=== PATIENT | female | born 1990 | race Two or more races ===

== ENCOUNTER 2018-10-21 16:08 | Emergency (ER) | payer OTHER ==
[~2018-10-21] VITALS: Ht 162.6 cm; Wt 49.9 kg
== END 2018-10-21 17:20 | disposition home or self-care (01) ==
LOC: ER 16:08
DX: N63.23 Unspecified lump in the left breast, lower outer quadrant (principal)

== ENCOUNTER → 2019-07-31 16:25 | Outpatient (CLI) | payer OTHER | END | disposition home or self-care (01) | LOC: LAB 16:25 | DX: J11.1 Influenza due to unidentified influenza virus with other respiratory manifestations (principal); J20.0 Acute bronchitis due to Mycoplasma pneumoniae ==

== ENCOUNTER 2019-11-08 18:09 | Emergency (ER) | payer OTHER ==
[~2019-11-08] VITALS: Ht 162.6 cm; Wt 50.8 kg
[2019-11-08] MEDS ORDERED: FUSION PLUS CA1 EACH PO (18:41)
== END 2019-11-08 21:57 | disposition home or self-care (01) ==
LOC: ER 18:09
DX: J11.1 Influenza due to unidentified influenza virus with other respiratory manifestations (principal); B96.0 Mycoplasma pneumoniae [M. pneumoniae] as the cause of diseases classified elsewhere

== ENCOUNTER 2020-04-09 12:49 | Outpatient (CLI) | payer OTHER ==
[~2020-04-09 12:49] MED LIST: FUSION PLUS CA1 EACH PO
== END 2020-04-09 13:03 | disposition home or self-care (01) ==
LOC: RAD 12:49
DX: M99.01 Segmental and somatic dysfunction of cervical region (principal); M62.830 Muscle spasm of back; M54.2 Cervicalgia; M99.02 Segmental and somatic dysfunction of thoracic region; M99.03 Segmental and somatic dysfunction of lumbar region; M54.5 Low back pain; M51.37 Other intervertebral disc degeneration, lumbosacral region; M99.04 Segmental and somatic dysfunction of sacral region

== ENCOUNTER 2020-06-22 12:06 | Emergency (ER) | payer OTHER ==
[~2020-06-22] VITALS: Ht 162.6 cm; Wt 49.9 kg
== END 2020-06-22 17:27 | disposition home or self-care (01) ==
LOC: ER 12:06
DX: N39.0 Urinary tract infection, site not specified (principal); B96.29 Other Escherichia coli [E. coli] as the cause of diseases classified elsewhere; R31.29 Other microscopic hematuria

== ENCOUNTER 2021-05-12 13:55 | Emergency (ER) | payer OTHER ==
[~2021-05-12] VITALS: Ht 162.6 cm; Wt 50.8 kg
[2021-05-12] MEDS ORDERED: BENZONATATE200 M1 PO (18:54)
== END 2021-05-12 19:02 | disposition home or self-care (01) ==
LOC: ER 13:55
DX: B34.9 Viral infection, unspecified (principal); Z03.818 Encounter for observation for suspected exposure to other biological agents ruled out; R05 Cough; R09.81 Nasal congestion; R07.89 Other chest pain; R63.0 Anorexia; R51.9 Headache, unspecified

== ENCOUNTER 2022-02-27 06:14 | Emergency (ER) | payer OTHER ==
[~2022-02-27] VITALS: Ht 162.6 cm; Wt 48.5 kg
[~2022-02-27 06:14] MED LIST changes: +BENZONATATE200 M1 PO
[2022-02-27] MEDS ORDERED: IPRAT-ALBUT 0.5-3 ML IH (10:01)
[2022-02-27] MEDS ORDERED: BUDESONIDE0.5 MG/2 M IH (10:01)
[2022-02-27] MEDS ORDERED: MUCINEX DM ER1 EAC1 PO (10:01)
[2022-02-27] MEDS ORDERED: ZITHROMAX500 MG PO (10:01)
== END 2022-02-27 10:09 ==
LOC: ER 06:14
DX: A49.3 Mycoplasma infection, unspecified site (principal); J06.9 Acute upper respiratory infection, unspecified; Z20.822 Contact with and (suspected) exposure to COVID-19

== ENCOUNTER 2023-08-28 17:22 | Emergency (ER) | payer OTHER ==
[~2023-08-28] VITALS: Ht 162.6 cm; Wt 54.4 kg
[~2023-08-28 17:22] MED LIST changes: +BUDESONIDE0.5 MG/2 M IH; +IPRAT-ALBUT 0.5-3 ML IH; +MUCINEX DM ER1 EAC1 PO; +ZITHROMAX500 MG PO
[2023-08-28 21:04] LABS: HEMATOCRIT 31.7 % (36.0-45.00); HEMOGLOBIN 10.5 g/dL (12.0-15.00); MEAN CELL VOLUME 80.6 fL (80.00-100.00); MEAN CORPUSCULAR HEMOGLOBIN 26.7 pg (27.00-32.0); MEAN CORPUSCULAR HGB CONC 33.1 g/dl (32.0-36.0); PLATELET COUNT 253 K/uL (150-450); RED BLOOD COUNT 3.94 M/uL (4.00-6.00); RED CELL DISTRIBUTION WIDTH 13.1 % (11.5-14.5)
[2023-08-28 21:41] LABS: URINE APPEARANCE Cloudy; URINE BILIRRUBIN Negative (NEGATIVE); URINE BLOOD Negative; URINE COLOR Yellow; URINE GLUCOSE Negative (NEGATIVE); URINE LEUKOCYTE Large; URINE NITRATE Positive; URINE PROTEIN Trace (NEGATIVE)
[2023-08-28 21:45] LABS: URINE EPITHELIAL CELLS 104.5 uL (0.0-38.8); URINE WBC 374.9 uL (0.0-23.2)
[2023-08-28 22:05] LABS: URINE BACTERIA > 9821.5 uL (0.0-1933); URINE RBC 1.1 uL (0.0-20.8)
[2023-08-28 22:10] LABS: URINE YEAST NEGATIVE /hpf
== END 2023-08-28 22:50 | disposition home or self-care (01) ==
LOC: ER 17:22
PROVIDERS: General Practice
DX: N39.0 Urinary tract infection, site not specified (principal); M79.641 Pain in right hand

== ENCOUNTER 2024-07-20 23:45 | Emergency (ER) | payer OTHER ==
[~2024-07-20] VITALS: Ht 162.6 cm; Wt 65.8 kg
[2024-07-21] MEDS ORDERED: CEFTRIAXONE SODIUM 1,000 MG VIAL IM STA (01:42)
== END 2024-07-21 01:51 | disposition home or self-care (01) ==
LOC: ER 23:47
DX: J03.90 Acute tonsillitis, unspecified (principal)

== ENCOUNTER 2024-12-10 23:43 | Emergency (ER) | payer OTHER ==
[~2024-12-10] VITALS: Ht 162.6 cm; Wt 57.2 kg
[2024-12-11] MEDS ORDERED: ORPHENADRINE CITRATE 30 MG/ML AMPUL IM STA (02:01)
[2024-12-11] MEDS ORDERED: KETOROLAC TROMETHAMINE 60 MG VIAL IM STA (02:01)
[2024-12-11 02:55] LABS: URINE APPEARANCE Cloudy; URINE BILIRRUBIN Negative (NEGATIVE); URINE BLOOD Trace; URINE COLOR Yellow; URINE GLUCOSE Negative (NEGATIVE); URINE LEUKOCYTE Large; URINE NITRATE Positive; URINE PROTEIN Trace (NEGATIVE); URINE UROBILINOGEN 0.2 E.U./dl
[2024-12-11 02:56] LABS: HEMATOCRIT 30.6 % (36.0-45.00); HEMOGLOBIN 10.1 g/dL (12.0-15.00); MEAN CELL VOLUME 81.1 fL (80.00-100.00); MEAN CORPUSCULAR HEMOGLOBIN 26.8 pg (27.00-32.0); PLATELET COUNT 200 K/uL (150-450); RED BLOOD COUNT 3.78 M/uL (4.00-6.00); RED CELL DISTRIBUTION WIDTH 12.8 % (11.5-14.5)
[2024-12-11 02:58] LABS: URINE EPITHELIAL CELLS 101.9 uL (0.0-38.8); URINE RBC 141.2 uL (0.0-20.8); URINE WBC 508.8 uL (0.0-23.2)
[2024-12-11 03:41] LABS: URINE BACTERIA > 9821.5 uL (0.0-1933); URINE CAST 0.58 uL (0.0-1.40); URINE KETONE 40 (NEGATIVE); URINE YEAST FEW /hpf
[2024-12-11] MEDS ORDERED: CEFTRIAXONE SODIUM 1,000 MG VIAL IM STA (04:59)
[2024-12-11] MEDS ORDERED: CEPHALEXIN500 MG PO (05:16)
== END 2024-12-11 05:18 ==
LOC: ER 23:45
PROVIDERS: General Practice
DX: R53.81 Other malaise (principal); N39.0 Urinary tract infection, site not specified; R50.9 Fever, unspecified

== ENCOUNTER → 2025-03-15 | Emergency (ER) | payer OTHER ==
[~2025-03-15] VITALS: Ht 162.6 cm; Wt 56.7 kg
[~2025-03-15] MED LIST changes: +ACETAMINOPHEN500 M1 PO; +ALBUTEROL2.5 MG/3 M IH; +CEPHALEXIN500 MG PO; +GILTUSS COUGH-118 M1 PO; +IPRATROPIUM/ALBUTEROL SULFATE 3 ML AMPUL.NEB IH ONE; +IPRATROPIUM/ALBUTEROL SULFATE 3 ML AMPUL.NEB IH SCH; +PROAIR RESPICL90 MCG IH; +SODIUM CHLORIDE FOR INHALATION 1 VIAL.NEB IH ONE; +ZITHROMAX TRI-500 MG PO
[2025-03-15 15:14] VITALS: BP 118/74; O2SAT 98
[2025-03-15 18:07] LABS: BASO % 0.6 % (0.1-1.2); EOS # 0.04 (0.04-0.54); EOS % 0.4 % (0.7-7.0); HEMATOCRIT 33.8 % (34.1-44.9); HEMOGLOBIN 10.9 g/dL (11.2-15.7); LYMPH # 0.95 (1.18-3.74); LYMPH % 10.6 % (19.3-53.1); MEAN CORPUSCULAR HEMOGLOBIN 26.1 pg (25.6-32.2); MONO # 0.56 (0.24-0.82); MONO % 6.2 % (4.7-12.5); NEUT # 7.38 (1.56-6.13); NEUT % 82.1 % (34.0-71.1); PLATELET COUNT 263 K/uL (163-369); RED BLOOD COUNT 4.18 M/uL (3.93-5.22)
[2025-03-15 19:54] LABS: COVID-19 AG NEGATIVE (NEGATIVE)
[2025-03-15 19:55] LABS: INFLUENZA A AG NEGATIVE (NEGATIVE); INFLUENZA B AG NEGATIVE (NEGATIVE)
== END | disposition home or self-care (01) ==
LOC: ER 14:57
PROVIDERS: Preventive Medicine Public Health & General Preventive Medicine
DX: J06.9 Acute upper respiratory infection, unspecified (principal); J45.909 Unspecified asthma, uncomplicated; Z20.822 Contact with and (suspected) exposure to COVID-19

== ENCOUNTER → 2025-03-17 | Emergency (ER) | payer OTHER ==
[~2025-03-17] VITALS: Ht 162.6 cm; Wt 56.7 kg
[~2025-03-17] MED LIST changes: +BENZONATATE 100 MG CAPSULE PO STA; -IPRATROPIUM/ALBUTEROL SULFATE 3 ML AMPUL.NEB IH ONE; -IPRATROPIUM/ALBUTEROL SULFATE 3 ML AMPUL.NEB IH SCH; -SODIUM CHLORIDE FOR INHALATION 1 VIAL.NEB IH ONE; +SODIUM CHLORIDE FOR INHALATION 1 VIAL.NEB IH STA
== END | disposition home or self-care (01) ==
LOC: ER 13:15
DX: R05.9 Cough, unspecified (principal); J06.9 Acute upper respiratory infection, unspecified